=== PATIENT | male | born 1960 | race Caucasian/White ===

== ENCOUNTER 2018-10-09 21:57 | Emergency (ER) | payer OTHER ==
[~2018-10-09 21:57] MED LIST: DEXTROSE 50%-WATER 50 ML DISP.SYRIN IV ONE
== END 2018-10-09 22:32 | disposition home or self-care (01) ==
LOC: EDH 21:57
DX: E11.649 Type 2 diabetes mellitus with hypoglycemia without coma (principal); T38.3X5A Adverse effect of insulin and oral hypoglycemic [antidiabetic] drugs, initial encounter; Y92.89 Other specified places as the place of occurrence of the external cause
CPT/HCPCS: 82948 ×2; 96374; 99283; J7070